=== PATIENT | female | born 1995 | race Caucasian/White ===

== ENCOUNTER 2022-01-01 18:18 | Emergency (ER) | payer BC, SELFPAY ==
[2022-01-01 18:49] VITALS: BP 135/85; PULSE 108; RESP 16; TEMP 37.2; O2SAT 97; BMI 23.3
--- NOTE | 2022-01-01 21:11 | CTR_ITS ---
PROCEDURE INFORMATION: Exam: CT Head Without Contrast Exam date and time: 01/01/2022 10:19 PM Age: 26 years old Clinical indication: Pain; Headache not specified; Patient HX: C/O frontal LUU w n/v and photophobia; Additional info: Migraine-first episode TECHNIQUE: Imaging protocol: Computed tomography of the head without contrast. Radiation optimization: All CT scans at this facility use at least one of these dose optimization techniques: automated exposure control; mA and/or kV adjustment per patient size (includes targeted exams where dose is matched to clinical indication); or iterative reconstruction. COMPARISON: No relevant prior studies available. RADIATION DOSE METRICS: Total DLP (mGy-cm): 740.04 FINDINGS: Brain: Normal. No hemorrhage. Unremarkable white matter. No mass effect. Cerebral ventricles: No ventriculomegaly. Paranasal sinuses: Visualized sinuses are unremarkable. No fluid levels. Mastoid air cells: Visualized mastoid air cells are well aerated. Soft tissues: Unremarkable. Bones/joints: Unremarkable. No acute fracture. CT/CT head wo con* [id number] IMPRESSION: No acute intracranial abnormality.
--- NOTE | 2022-01-01 21:13 | ED_ITS ---
HPI - Headache General: Chief Complaint: Nausea/Vomiting/Diarrhea Stated Complaint: Migrane Time Seen by Provider: 01/01/22 20:57 History of Present Illness: Patient is a 26-year-old female who comes to the ED with a migraine. Symptoms started yesterday. She has had headaches in the past but says she has never had a headache like this before. Headache rated a 7 out of 10. She is having some nausea with emesis. She states that lights and loud noises make her headache worse. Headache is located in the frontal region of head bilaterally. Denies any neurological symptoms such as vision changes, numbness or tingling to face or any weakness to 1 side of her body. Patient als o says she has been having some on and off nausea and some generalized abdominal pain that has been going on and off for the past 2 months. She seen her primary care physician at [facility] about her abdominal pain and they performed an ultrasound of her abdomen 2 weeks ago she has not gotten the report yet. Denies any fevers, diarrhea, constipation, dysuria, hematuria, vaginal bleeding or vag inal discharge. Patient says her last menstrual period was the end of November. Associated symptoms: Reports nausea and vomiting; Deny chest pain, fever(s) or rash Review of Systems Const: Denies: fever(s), chills or fatigue Eyes: Reports: photophobia; Denies: change in vision or eye discomfort ENMT: Denies: throat pain, odynophagia, nasal discharge or nasal congestion Card: Denies: chest pain, palpitations, edema, swelling of feet/ankles, dyspnea on exertion or orthopnea Resp: Denies: dyspnea, productive cough or non-productive cough GI: Reports: nausea and vomiting; Denies: abdominal pain, diarrhea, constipation or hematochezia : Denies: flank pain, dysuria or hematuria Musc: Denies: neck pain, back pain or extremity swelling Skin/Breast: Denies: rash or new lesions Neuro: Reports: headache(s); Denies: numbness in extremities or weakness in extremities PFS ED PFSH: Medical History No pertinent family history No pertinent past medical history Female Reproductive History: Date of last menstrual period: 12/14/21 Physical Exam Const: COMMON NORMALS: no acute distress, patient oriented x3, healthy appearing and alert GENERAL APPEARANCE: cooperative and comfortable HENMT: COMMON NORMALS: normocephalic HEAD & SCALP: normocephalic MOUTH: Normal oral and palatal mucosa present THROAT: posterior oropharynx normal and uvula midline Eye: COMMON NORMALS: Equal, round and reactive pupils present, EOMs intact bilaterally and conjunctivae normal CONJUNCTIVA: Yes conjunctivae normal PUPIL: Yes Equal, round and reactive pupils present Neck/C-Spine: COMMON NORMALS: supple GENERAL: Yes normal visual inspection Resp: COMMON NORMALS: normal respiratory effort, No retractions, No use of accessory muscles and clear to auscultation bilaterally AUSCULTATION: clear to auscultation bilaterally Cardio: COMMON NORMALS: regular rate, regular rhythm, S1 normal heart sound present, S2 normal heart sound present, No gallops present (Cardio), No clicks present (Cardio), No murmurs present (Cardio) and Peripheral pulses 2+ throughout RATE: regular rate RHYTHM: regular rhythm HEART SOUNDS: S1 normal heart sound present and S2 normal heart sound present PERIPHERAL PULSES: Peripheral pulses 2+ throughout GI: COMMON NORMALS: Normal to inspection, nondistended, normoactive bowel sounds present, Soft to palpation, non-tender and no masses PALPATION: Yes Soft to palpation : COMMON NORMALS: Yes no CVA tenderness BLADDER/KIDNEY EXAM: Yes no CVA tenderness Back/Pelvis: COMMON NORMALS: no CVA tenderness Extremity: COMMON NORMALS: normal to inspection Neuro: COMMON NORMALS: patient oriented x3, CN's II-XII intact bilaterally, moves all extremities, no focal motor deficits and no sensory deficits noted SENSORIUM/ORIENTATION: Yes alert SENSORY EXAM: Yes extremities (intact) MOTOR EXAM: 5/5 motor strength present throughout Skin: GENERAL SKIN EXAM: dry skin Course Reevaluation(s): Reevaluation #1: After patient received migraine meds her headache improved. She now rates her migraine a 4 out of 10 and feels that it is manageable and she is ready to be discharged home. Time: 23:05 Vital Signs: Vital signs: Vital Signs Temperature 99 F 01/01/22 18:49 Pulse Rate 78 01/01/22 23:49 Respiratory Rate 18 01/01/22 23:49 Blood Pressure 93/54 01/01/22 23:49 Pulse Oximetry 98 01/01/22 23:49 [facility] - Headache Medical Decision Making Patient is a 26-year-old female comes to the ED with migraine symptoms. Patient has never had a headache like this before. She has had nausea today with multiple episodes of emesis. Patient appears nontoxic and in no acute distress or pain. Vitals are stable. Neuro exam is normal. Rest of exam is benign. White blood cell count 16.4 but the rest of CBC, CMP UA and lipase were unr emarkable. hCG negative. CT of head showed no acute findings. Patient was given migraine med cocktail and her headache improved. She was stable and ready for discharge home. Patient diagnosed with a migraine. She was told to follow- up with her PCP in the next week for reevaluation. Return to ED precautions given. Patient understood and agreed with plan. Lab Data I reviewed the patient's lab results. : 01/01/22 21:42 01/01/22 21:[address] 01/01/22 21:11 IMPRESSION: No acute intracranial abnormality. Laboratory Results WBC 16.4 10^3/uL (4.0-10.0) H 01/01/22 21:42 RBC 4.46 10^6/uL (4.1-5.3) 01/01/22 21:42 Hgb 13.9 g/dL (11.5-15.3) 01/01/22 21:42 Hct 42.3 % (37.0-47.0) 01/01/22 21:42 MCV 94.8 fl (81-99) 01/01/22 21:42 MCH 31.2 pg (28.0-34.0) 01/01/22 21:42 MCHC 32.9 g/dL (30.0-36.0) 01/01/22 21:42 RDW 12.4 % (12.1-15.1) 01/01/22:42 Plt Count 467 10^3/cmm (130-400) H 01/01/22 21:42 MPV 9.9 fL (7.4-10.4) 01/01/22 21:42 Neut % (Auto) 62.9 % 01/01/22 21:42 Lymph % (Auto) 28.6 % 01/01/22:42 Thomas % (Auto) 7.0 % 01/01/22 21:42 Eos % (Auto) 0.8 % 01/01/22 21:42 Baso % (Auto) 0.4 % 01/01/22 21:42 Neut # (Auto) 10.33 10^3/uL (1.8-7.7) H 01/01/22 21:42 Lymph # (Auto) 4.7 10^3/uL (0.8-4.8) 01/01/22 21:42 Thomas # (Auto) 1.2 10^3/uL (0.2-0.9) H 01/01/22 21:42 Eos # (Auto) 0.1 10^3/uL (0.0-0.8) 01/01/22 21:42 Baso # (Auto) 0.1 10^3/uL (0.0-0.1) 01/01/22 21:42 Nucleated RBC % (auto) 0 % 01/01/22 21: Nucleated RBCs # 0.0 /100WBC 01/01/22 21:42 Sodium 139 mmol/L (136-145) 01/01/22 21:42 Potassium 4.2 mmol/L (3.5-5.1) 01/01/22 21:42 Chloride 105 mmol/L (98-107) 01/01/22 21:42 Carbon Dioxide 22 mmol/L (22-29) 01/01/22 21:42 Anion Gap 16.2 (5-19) 01/01/22 21:42 BUN 18 mg/dL (6-20) 01/01/22 21:42 Creatinine 0.7 mg/dL (0.5-0.9) 01/01/22 21:42 GFR Calculation 102.8 mL/min (90-130) 01/01/22 21:42 Glucose 86 mg/dL (65-115) 01/01/22 21:42 Calculated Osmolality 289 mOsm/kg (285-295) 01/01/22 21:42 Calcium 9.7 mg/dL (8.5-10.5) 01/01/22 21:42 Total Bilirubin 0.2 mg/dL (0.15-1.2) 01/01/22 21:42 AST 20 U/L (0-32) 01/01/22 21:42 ALT 16 U/L (0-33) 01/01/22 21:42 Alkaline Phosphatase 121 IU/L (35-105) H 01/01/22 21:42 Total Protein 7.5 g/dL (6.6-8.7) 01/01/22 21:42 Albumin 5.1 g/dL (3.5-5.2) 01/01/22 21:42 Globulin 2.4 g/dL (1.3-4.6) 01/01/22 21:42 Lipase 29 U/L (13-60) 01/01/22 21:42 HCG, Qual Negative (Negative) 01/01/22 21:42 Urine Color Yellow (Yellow) 01/01/22 21:50 Urine Appearance Turbid (CLEAR) 01/01/22 21:50 Urine pH 6.5 (5-7) 01/01/22 21:50 Ur Specific [place] 1.020 (1.005-1.030) 01/01/22 21:50 Urine Protein Neg (Negative) 01/01/22 21:50 Urine Glucose (UA) Norm (Normal) 01/01/22 21:50 Urine Ketones Negative (Negative) 01/01/22 21:50 Urine Blood Neg (Negative) 01/01/22 21:50 Urine Nitrate Negative (Negative) 01/01/22 21:50 Urine Bilirubin Neg (Negative) 01/01/22 21:50 Urine Urobilinogen 1 mg/dL (Negative) H 01/01/22 21:50 Ur Leukocyte Esterase Negative (Negative) 01/01/22 21:50 Urine RBC 0-4 /hpf (0-2) H 01/01/22 21:50 Urine WBC 0-4 /hpf (0-5) H 01/01/22 21:50 Ur Squamous Epith Cells 25-40 /hpf (0-5) H 01/01/22 21:50 Amorphous Sediment Not Reportable 01/01/22 21:50 Urine Bacteria 2+ /hpf (NONE) H 01/01/22 21:50 Urine Mucus 2+ /hpf 01/01/22 21:50 Discharge Plan Discharge Patient Disposition: Home Clinical Impression: Migraine Qualifiers: Migraine type: without aura Status migrainosus presence: without status migrainosus Intractability: not intractable Qualified Code(s): G43.009 - Migraine without aura, not intractable, without status migrainosus Condition: Stable Prescriptions: New ondansetron 4 mg tablet,disintegrating 4 mg PO Q8H PRN (Reason: nausea and vomiting) Qty: 15 0RF Discharge Orders: Discharge ED (Routine); Ordered 01/01/22 Ordered By: Ike Bianchi Discharge Diet: Regular Discharge Activity: Resume usual activity Patient Instructions: Headache - Migraine (Adult) Activity Restrictions/Additional Instructions: Follow-up with medical provider as directed in the next 7 to 10 days reevaluation. Take medications as prescribed. Return to the ER or your medical provider if condition worsens. Please read and understand discharge instructions. Thank you for choosing [facility] for your healthcare needs today. Please realize this is an emergency room and that we are providing you with a medical screening exam and this may not be complete and all inclusive of all the testing and or work up that you may need to determine your ailment or severity of your illness. It is very important that you follow up as instructed or that you return to the Emergency Department should you have concerns or if your cond ition changes or worsens in any way. Coding Level of Care Code ED [employer] [facility] Exam Comprehensive
[2022-01-01 21:48] LABS: Basophils # 0.1 10^3/uL (0.0-0.1); Basophils % 0.4 %; Eosinophils # 0.1 10^3/uL (0.0-0.8); Eosinophils % 0.8 %; Hematocrit 42.3 % (37.0-47.0); Hemoglobin 13.9 g/dL (11.5-15.3); Lymphocytes # 4.7 10^3/uL (0.8-4.8); Lymphocytes % 28.6 %; Mean Corpuscular HGB Conc 32.9 g/dL (30.0-36.0); Mean Corpuscular Hemoglobin 31.2 pg (28.0-34.0); Mean Corpuscular Volume 94.8 fl (81-99); Mean Platelet Volume 9.9 fL (7.4-10.4); Monocytes # 1.2 10^3/uL (0.2-0.9); Neutrophils # 10.33 10^3/uL (1.8-7.7); Neutrophils % 62.9 %; Nucleated Red Blood Cells % 0 %; Platelet Count 467 10^3/cmm (130-400); Red Blood Count 4.46 10^6/uL (4.1-5.3); Red Cell Distribution Width 12.4 % (12.1-15.1); White Blood Count 16.4 10^3/uL (4.0-10.0)
[2022-01-01] MEDS: diphenhydrAMINE 50 mg/mL SDV 1mL 25 MG IVP (21:50)
[2022-01-01] MEDS: ketorolac 30 mg/mL INJ IVP (21:50)
[2022-01-01] MEDS: dexamethasone 10 mg/mL INJ IVP (21:50)
[2022-01-01] MEDS: metoclopramide 5 mg/mL SDV 2 mL 10 MG IVP (21:51)
[2022-01-01] MEDS: sodium chloride 0.9% 500 ML 999 ML IV (21:51)
[2022-01-01 22:07] LABS: Add Urine Microscopic? YES; Bilirubin Urine Neg (Negative); Blood Urine Neg (Negative); Glucose Urine UA Norm (Normal); Ketones Urine Negative (Negative); Leukocyte Esterase Urine Negative (Negative); Nitrate Urine Negative (Negative); Protein Urine Neg (Negative); Urine Appearance Turbid (CLEAR); Urine Color Yellow (Yellow); Urobilinogen Urine 1 mg/dL (Negative); pH Urine 6.5 (5-7)
[2022-01-01 22:08] LABS: Add Urine Culture? No; Bacteria Urine 2+ /hpf; Mucus Urine 2+ /hpf; RBC Urine 0-4 /hpf (0-2); Squamous Epithelial Cell Urine 25-40 /hpf (0-5); WBC Urine 0-4 /hpf (0-5)
[2022-01-01 22:15] LABS: HCG, Serum Qual Negative (Negative)
[2022-01-01 22:31] LABS: Alanine Aminotransferase 16 U/L (0-33); Albumin Level 5.1 g/dL (3.5-5.2); Alkaline Phosphatase 121 IU/L (35-105); Anion Gap 16.2 (5-19); Aspartate Amino Transferase 20 U/L (0-32); Blood Urea Nitrogen 18 mg/dL (6-20); Calcium 9.7 mg/dL (8.5-10.5); Carbon Dioxide 22 mmol/L (22-29); Chloride 105 mmol/L (98-107); Globulin 2.4 g/dL (1.3-4.6); Glomerular Filtration Rate 102.8 mL/min (90-130); Glucose 86 mg/dL (65-115); Lipase 29 U/L (13-60); Osmolality Calculated 289 mOsm/kg (285-295); Potassium 4.2 mmol/L (3.5-5.1); Sodium 139 mmol/L (136-145); Total Bilirubin 0.2 mg/dL (0.15-1.2); Total Protein 7.5 g/dL (6.6-8.7)
[2022-01-01 23:49] VITALS: BP 93/54; PULSE 78; RESP 18; O2SAT 98
== END 2022-01-01 23:50 | disposition home or self-care (01) ==
PROVIDERS: Emergency Provider Physician Assistant
DX: G43.009 Migraine without aura, not intractable, without status migrainosus (principal)
CPT/HCPCS: 70450; 80053; 81001; 83690; 84703; 85025; 96374; 96375; 99284; J1100; J1200; J1885; J2765; J7040

== ENCOUNTER → 2022-05-13 13:17 | Outpatient (BNVA) | payer BC, SELFPAY | PROVIDERS: Visit Provider Registered Nurse Neonatal Intensive Care | DX: N39.0 Urinary tract infection, site not specified (principal) | CPT/HCPCS: 81000 ==

== ENCOUNTER 2022-05-16 16:02 | Emergency (ER) | payer BC, SELFPAY ==
[2022-05-16 16:25] VITALS: BP 111/73; PULSE 74; RESP 17; TEMP 36.6; O2SAT 100; BMI 23.3
--- NOTE | 2022-05-16 18:14 | CTR_ITS ---
PROCEDURE INFORMATION: Exam: CT Abdomen And Pelvis Without Contrast Exam date and time: 05/16/2022 7:23 PM Age: 26 years old Clinical indication: Pain; Other: Bilateral flank; Additional info: Flank pain, eval for kidney stone TECHNIQUE: Imaging protocol: Computed tomography of the abdomen and pelvis without contrast. Axial, coronal and sagittal reformatted images were created and reviewed. Radiation optimization: All CT scans at this facility use at least one of these dose optimization techniques: automated exposure control; mA and/or kV adjustment per patient size (includes targeted exams where dose is matched to clinical indication); or iterative reconstruction. COMPARISON: US gall bladder [id number] 12/20/2021 3:26 PM RADIATION DOSE METRICS: Total DLP (mGy-cm): 446.06 FINDINGS: Lungs: Linear stranding and groundglass at the lung bases, likely due to atelectasis and/or scarring. Liver: Unremarkable. Gallbladder and bile ducts: No radiodense gallstones. No biliary ductal dilatation. Pancreas: Unremarkable. Spleen: Unremarkable. Adrenal glands: Normal. No mass. Kidneys and ureters: No mass. No radiodense calculi. No hydronephrosis. Stomach and bowel: Moderate amount of retained stool in the colon. No obstruction. No bowel wall thickening. No pneumatosis. Appendix: Normal. Intraperitoneal space: Trace nonspecific free pelvic fluid, likely physiologic. No organized fluid collection. No free air. Vasculature: Unremarkable. No aneurysm. Lymph nodes: Small mesenteric lymph nodes, nonspecific in appearance. No pathologically enlarged lymph nodes. Urinary bladder: Unremarkable as visualized. Reproductive: 3.1 x 2.9 cm left adnexal cystic lesion. Bones/joints: No acute osseous abnormality. Soft tissues: Unremarkable. CT/CT abdomen pelvis wo con [id number] IMPRESSION: 1. 3.1 x 2.9 cm left adnexal cystic lesion. If clinically indicated, pelvic ultrasound may be obtained for further evaluation. 2. Additional findings, as above.
[2022-05-16 18:36] LABS: Basophils % 0.4 %; Eosinophils # 0.1 10^3/uL (0.0-0.8); Eosinophils % 0.6 %; Hematocrit 42.7 % (37.0-47.0); Hemoglobin 13.7 g/dL (11.5-15.3); Lymphocytes # 2.5 10^3/uL (0.8-4.8); Lymphocytes % 27.1 %; Mean Corpuscular HGB Conc 32.1 g/dL (30.0-36.0); Mean Corpuscular Volume 96.6 fl (81-99); Mean Platelet Volume 9.8 fL (7.4-10.4); Monocytes # 0.7 10^3/uL (0.2-0.9); Monocytes % 7.2 %; Neutrophils # 5.99 10^3/uL (1.8-7.7); Neutrophils % 64.5 %; Nucleated Red Blood Cells % 0 %; Platelet Count 394 10^3/cmm (130-400); Red Blood Count 4.42 10^6/uL (4.1-5.3); Red Cell Distribution Width 12.1 % (12.1-15.1); White Blood Count 9.3 10^3/uL (4.0-10.0)
[2022-05-16 18:36] LABS: HCG Qualitative Urine. Negative (Negative)
[2022-05-16] MEDS: ketorolac 30 mg/mL INJ 15 MG IVP (18:38)
[2022-05-16 18:40] VITALS: BP 102/58; PULSE 68; RESP 18; TEMP 36.6; O2SAT 100
[2022-05-16 18:46] LABS: Add Urine Culture? No; Add Urine Microscopic? YES; Bilirubin Urine Neg (Negative); Blood Urine Neg (Negative); Glucose Urine UA Norm (Normal); Ketones Urine 1+ (Negative); Leukocyte Esterase Urine Trace (Negative); Nitrate Urine Negative (Negative); Protein Urine Neg (Negative); Urine Appearance Clear (CLEAR); Urine Color Yellow (Yellow); Urobilinogen Urine Norm (Negative); WBC Urine 0-4 /hpf (0-5); pH Urine 5 (5-7)
[2022-05-16 18:51] LABS: HCG, Serum Qual Negative (Negative)
[2022-05-16 19:10] LABS: Alanine Aminotransferase 13 U/L (0-33); Albumin Level 5.3 g/dL (3.5-5.2); Alkaline Phosphatase 93 U/L (35-105); Anion Gap 16.7 (5-19); Aspartate Amino Transferase 21 U/L (0-32); Blood Urea Nitrogen 9 mg/dL (6-20); Calcium 9.9 mg/dL (8.5-10.5); Carbon Dioxide 24 mmol/L (22-29); Chloride 100 mmol/L (98-107); Glomerular Filtration Rate 122.8 mL/min (90-130); Glucose 80 mg/dL (65-115); Osmolality Calculated 282 mOsm/kg (285-295); Potassium 3.7 mmol/L (3.5-5.1); Sodium 137 mmol/L (136-145); Total Bilirubin 0.5 mg/dL (0.15-1.2); Total Protein 8.3 g/dL (6.6-8.7)
--- NOTE | 2022-05-16 19:50 | USR_ITS ---
PROCEDURE INFORMATION: Exam: US Duplex Artery or Vein of the Abdominal and/or Reproductive Organs, Limited Ovaries Exam date and time: 05/16/2022 8:11 PM Age: 26 years old Clinical indication: Abdominal pain; Right lower quadrant; Patient HX: RT adnexal pain x 1week. Concurrent UTI. Patient did not subside following treatment for UTI. Was advised to present to er [facility]. CT was done = cystic adnexal lesion; Additional info: Cystic adnexal lesion on CT. TECHNIQUE: Imaging protocol: Real-time duplex ultrasound scan of the arterial or venous flow with joseph scale, color Doppler flow and spectral waveform analysis with image documentation. Limited duplex exam focused on the ovaries. Duplex images required to evaluate for torsion and other vascular conditions. COMPARISON: CT abdomen pelvis con [id number] 05/16/2022 7:23 PM FINDINGS: Right ovary/adnexa: Normal duplex of the ovary. Normal Doppler waveforms and color flow. No evidence of ovarian torsion. Left ovary/adnexa: Normal duplex of the ovary. Normal Doppler waveforms and color flow. No evidence of ovarian torsion. PROCEDURE INFORMATION: Exam: US Pelvis Complete, Transabdominal and US Pelvis, Transvaginal Exam date and time: 05/16/2022 8:11 PM Age: 26 years old Clinical indication: Abdominal pain; Right lower quadrant; Patient HX: RT adnexal pain x 1week. Concurrent UTI. Patient did not subside following treatment for UTI. Was advised to present to er [facility]. CT was done = cystic adnexal lesion; Additional info: Cystic adnexal lesion on CT. TECHNIQUE: Imaging protocol: Real-time complete transabdominal and transvaginal pelvic ultrasound with image documentation. Transvaginal imaging was used for better evaluation of the endometrium, adnexa, and/or cervix. COMPARISON: CT abdomen pelvis wo con [id number] 05/16/2022 7:23 PM FINDINGS: Uterus: 7.1 x 4.3 x 5.7 cm. Normal endometrial thickness, measuring approximately 11 mm. Right ovary/adnexa: 3.2 x 2.3 x 3.5 cm. No mass. Normal ovarian blood flow. Left ovary/adnexa: 3.4 x 2.8 x 3.7 cm. 2.9 x 3.1 x 2.4 cm cystic lesion with internal septations and debris, likely a hemorrhagic cyst. No solid mass. Normal ovarian blood flow. Intraperitoneal space: Trace free pelvic fluid, likely physiologic. Urinary bladder: Normal. US/US pelvic limited [id number] IMPRESSION: Normal duplex of the ovaries. No evidence of ovarian torsion. IMPRESSION: 2.9 x 3.1 x 2.4 cm left ovarian cystic lesion with internal septations and debris, likely a hemorrhagic cyst.
[2022-05-16 20:00] VITALS: BP 108/60; PULSE 72; RESP 18; TEMP 36.6; O2SAT 100
--- NOTE | 2022-05-16 21:55 | ED_ITS ---
HPI - Female Genitourinary General: Chief complaint: Urogenital-Female Stated complaint: abd pain Time Seen by Provider: 05/16/22 18:13 History of Present Illness: 26-year-old female presenting today with right flank pain. Patient notes that she has had moderate right flank pain. This pain has been present for several days. Was initially started on antibiotics for suspected UTI. She notes that despite these antibiotics her flank pain has not improved. She denies fevers or chills. She denies nausea or vomiting. She notes the pain is constant and not improving. She denies continued dysuria or polyuria. She denies vaginal bleeding or vaginal discharge. Date of Last Menstrual Period: 12/14/21 Review of Systems General: Reports: 10 or more systems reviewed and unremarkable except in HPI and below PFSH ED PFSH: Medical History (Updated 05/16/22 @ 22:07 by Charles Qureshi DO) No pertinent family history No pertinent past medical history Psychiatric care Social History (Updated 05/10/22 @ 08:59 by Man Bustamante LPN) Smoking and tobacco status: never smoked Second hand smoke exposure: No Smoking risk assessment/counseling performed?: No Alcohol intake: former Year of sobriety/quit date alcohol: 2020 Desire information about alcohol rehabilitation?: No Counseling given: No Desire information about substance/drug rehabilitation?: No Counseling given: No Female Reproductive History: Date of last menstrual period: 12/14/21 Physical Exam Const: COMMON NORMALS: no acute distress, patient oriented x3 and alert GENERAL APPEARANCE: cooperative ORIENTATION/CONSCIOUSNESS: Yes awake, Yes oriented to person, Yes oriented to place and Yes oriented to time HENMT: COMMON NORMALS: normocephalic, atraumatic, external ears normal, Normal external nose present and moist oral mucous membranes HEAD & SCALP: normal to inspection, normocephalic and atraumatic NOSE: Normal external nose present GENERAL EAR: hearing grossly impaired EXTERNAL EAR: Yes external ears normal Eye: COMMON NORMALS: Equal, round and reactive pupils present, EOMs intact bilaterally, conjunctivae normal and no scleral icterus GENERAL EYE: appearance normal, both eyes and all related structures EYELID: eyelids normal CONJUNCTIVA: Yes conjunctivae normal SCLERA: sclerae normal PUPIL: Yes Equal, round and reactive pupils present Neck/C-Spine: COMMON NORMALS: full ROM, supple and no JVD GENERAL: Yes normal visual inspection Lymph: LYMPHATIC: no lymphadenopathy noted and no lymphedema noted Chest: COMMONS NORMALS: normal inspection of the chest Resp: COMMON NORMALS: normal respiratory effort, No retractions and No use of accessory muscles Cardio: COMMON NORMALS: no JVD, regular rate and regular rhythm RATE: regular rate RHYTHM: regular rhythm GI: COMMON NORMALS: Normal to inspection, nondistended, normoactive bowel sounds present : COMMON NORMALS: Yes no CVA tenderness BLADDER/KIDNEY EXAM: Yes no CVA tenderness Back/Pelvis: COMMON NORMALS: no CVA tenderness and thoracic and lumbar spine normal to inspection Extremity: COMMON NORMALS: normal to inspection, full ROM and capillary refill normal GENERAL: Yes normal exam except as noted Neuro: COMMON NORMALS: patient oriented x3, CN's II-XII intact bilaterally, moves all extremities, no focal motor deficits, no sensory deficits noted and gait normal SENSORIUM/ORIENTATION: Yes alert, Yes oriented to person, Yes oriented to place and Yes oriented to time Psych: COMMON NORMALS: mental status grossly normal, Normal thought process present, cooperative and normal affect THOUGHT PROCESS: Normal thought process present Skin: COMMON NORMALS: no rashes or lesions noted and no wounds GENERAL SKIN EXAM: no rashes or lesions noted Course Vital Signs: Vital signs: Vital Signs Temperature 97.8 F 05/16/22 18:40 Pulse Rate 68 05/16/22 18:40 Respiratory Rate 18 05/16/22 18:40 Blood Pressure 102/58 05/16/22 18:40 Pulse Oximetry 100 05/16/22 18:40 Oxygen Delivery Me thod 05/16/22 18:40 MDM - Female Medical Decision Making 26-year-old female presenting today with right flank pain. Urinalysis is unremarkable. CBC is unremarkable. CMP is unremarkable. CT abdomen pelvis with evidence of cystic left adnexal lesion. Ultrasound ordered for further evaluation. Ultrasound with evidence of a hemorrhagic ovarian cyst. Patient was given return precautions recommended routine outpatient follow-up. Lab Data : 05/16/22 18:28 05/16/22 18:28 Radiology Impressions Abdomen/Pelvis CT 05/16/22 18:14 IMPRESSION: 1. 3.1 x 2.9 cm left adnexal cystic lesion. If clinically indicated, pelvic ultrasound may be obtained for further evaluation. 2. Additional findings, as above. Pelvis Ultrasound 05/16/22 19:50 IMPRESSION: Normal duplex of the ovaries. No evidence of ovarian torsion. IMPRESSION: 2.9 x 3.1 x 2.4 cm left ovarian cystic lesion with internal septations and debris, likely a hemorrhagic cyst. Laboratory Results WBC 9.3 10^3/uL (4.0-10.0) 05/16/22 18: RBC 4.42 10^6/uL (4.1-5.3) 05/16/22 18: Hgb 13.7 g/dL (11.5-15.3) 05/16/22 18: Hct 42.7 % (37.0-47.0) 05/16/22 18: MCV 96.6 fl (81-99) 05/16/22 18: MCH 31.0 pg (28.0-34.0) 05/16/22 18: MCHC 32.1 g/dL (30.0-36.0) 05/16/22 18: RDW 12.1 % (12.1-15.1) 05/16/22 18: Plt Count 394 10^3/cmm (130-400) 05/16/22 18: MPV 9.8 fL (7.4-10.4) 05/16/22 18: Neut % (Auto) 64.5 % 05/16/22 18: Lymph % (Auto) 27.1 % 05/16/22 18: [place] % (Auto) 7.2 % 05/16/22 18: Eos % (Auto) 0.6 % 05/16/22 18: Baso % (Auto) 0.4 % 05/16/22 18: Neut # (Auto) 5.99 10^3/uL (1.8-7.7) 05/16/22 18: Lymph # (Auto) 2.5 10^3/uL (0.8-4.8) 05/16/22 18: [place] # (Auto) 0.7 10^3/uL (0.2-0.9) 05/16/22 18: Eos # (Auto) 0.1 10^3/uL (0.0-0.8) 05/16/22 18:28 Baso # (Auto) 0.0 10^3/uL (0.0-0.1) 05/16/22 18:28 Nucleated RBC % (auto) 0 % 05/16/22 18:28 Nucleated RBCs # 0.0 /100WBC 05/16/22 18:28 Sodium 137 mmol/L (136-145) 05/16/22 18: Potassium 3.7 mmol/L (3.5-5.1) 05/16/22 18: Chloride 100 mmol/L (98-107) 05/16/22 18:28 Carbon Dioxide 24 mmol/L (22-29) 05/16/22 18:28 Anion Gap 16.7 (5-19) 05/16/22 18:28 BUN 9 mg/dL (6-20) 05/16/22 18:28 Creatinine 0.6 mg/dL (0.5-0.9) 05/16/22 18: GFR Calculation 122.8 mL/min (90-130) 05/16/22 18: Glucose 80 mg/dL (65-115) 05/16/22 18:28 Calculated Osmolality 282 mOsm/kg (285-295) L 05/16/22 18: Calcium 9.9 mg/dL (8.5-10.5) 05/16/22 18:28 Total Bilirubin 0.5 mg/dL (0.15-1.2) 05/16/22 18:28 AST 21 U/L (0-32) 05/16/22 18:28 ALT 13 U/L (0-33) 05/16/22 18:28 Alkaline Phosphatase 93 U/L (35-105) 05/16/22 18:28 Total Protein 8.3 g/dL (6.6-8.7) 05/16/22 18:28 Albumin 5.3 g/dL (3.5-5.2) H 05/16/22 18:28 Globulin 3.0 g/dL (1.3-4.6) 05/16/22 18:28 HCG, Qual Negative (Negative) 05/16/22 18:28 Urine Color Yellow (Yellow) 05/16/22 18:14 Urine Appearance Clear (CLEAR) 05/16/22 18:14 Urine pH 5 (5-7) 05/16/22 18:14 Ur Specific [place] 1.020 (1.005-1.030) 05/16/22 18:14 Urine Protein Neg (Negative) 05/16/22 18:14 Urine Glucose (UA) Norm (Normal) 05/16/22 18:14 Urine Ketones 1+ (Negative) H 05/16/22 18:14 Urine Blood Neg (Negative) 05/16/22 18:14 Urine Nitrate Negative (Negative) 05/16/22 18:14 Urine Bilirubin Neg (Negative) 05/16/22 18:14 Urine Urobilinogen Norm mg/dL (Negative) 05/16/22 18:14 Ur Leukocyte Esterase Trace (Negative) H 05/16/22 18:14 Urine RBC None /hpf (0-2) 05/16/22 18:14 Urine WBC 0-4 /hpf (0-5) H 05/16/22 18:14 Ur Squamous Epith Cells 5-10 /hpf (0-5) H 05/16/22 18:14 Amorphous Sediment Not Reportable 05/16/22 18:14 Urine Bacteria None /hpf (NONE) 05/16/22 18:14 Discharge Plan Discharge Patient Disposition: Home Clinical Impression: Ovarian cyst Condition: Stable Prescriptions: New diclofenac sodium 75 mg tablet,delayed release (DR/EC) 75 mg PO BID Qty: 30 0RF methocarbamol 750 mg tablet 750 mg PO Q8H Qty: 30 0RF No Action nitrofurantoin monohyd/m-cryst [Macrobid] 100 mg capsule 100 mg PO BID 5 Days Qty: 10 0RF Rx Instructions: must administer with a meal/food trazodone 50 mg tablet 100 mg PO .HS PRN (Reason: insomnia) Qty: 60 1RF fluoxetine [Prozac] 20 mg capsule 20 mg PO DAILY Qty: 30 1RF Discharge Orders: Discharge ED (Routine); Ordered 05/16/22 Ordered By: Charles Qureshi Discharge Diet: Advance as tolerated Discharge Activity: Resume usual activity Patient Instructions: Ovarian Cyst Coding Level of Care Code ED Fundraising Manager for [employer] Exam Comprehensive
[2022-05-16] MEDS: haloperidol inj 5 mg/mL INJ 1 mL 2 MG IVP (22:16)
[2022-05-16] MEDS: methocarbamol 750 mg Tablet 1500 MG PO (22:16)
[2022-05-16] MEDS: acetaminophen 500 mg Tablet 1000 MG PO (22:17)
[2022-05-16 22:27] VITALS: BP 110/62; PULSE 70; RESP 18; TEMP 36.7; O2SAT 100
== END 2022-05-16 22:25 | disposition home or self-care (01) ==
PROVIDERS: Family Medicine; Physician Assistant; Emergency Provider Emergency Medicine
DX: N83.202 Unspecified ovarian cyst, left side (principal)
CPT/HCPCS: 74176; 76830; 76856; 76857; 80053; 81001; 81025; 84703; 85025; 96374; 96375; 99285; J1630; J1885

== ENCOUNTER 2022-06-11 21:53 | Emergency (ER) | payer BC, SELFPAY ==
--- NOTE | 2022-06-11 21:58 | XRR_ITS ---
PROCEDURE INFORMATION: Exam: XR Chest Exam date and time: 06/11/2022 10:21 PM Age: 26 years old Clinical indication: Shortness of breath; Additional info: SOB TECHNIQUE: Imaging protocol: Radiologic exam of the chest. Views: 1 view. COMPARISON: CT abdomen pelvis con [id number] 05/16/2022 7:23 PM FINDINGS: Lungs: Unremarkable. No consolidation. Pleural spaces: Unremarkable. No pleural effusion. No pneumothorax. Heart/Mediastinum: Unremarkable. No cardiomegaly. Bones/joints: Unremarkable. XR/XR chest 1V portable [id number] IMPRESSION: No acute findings.
[2022-06-11 22:08] VITALS: BP 133/77; PULSE 75; RESP 16; TEMP 36.9; O2SAT 97
--- NOTE | 2022-06-11 22:15 | ECG_ITS ---
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 Measurements Intervals [place] Rate: 81 P: 52 LA: 180 QRS: 37 QRSD: 72 T: 40 QT: 380 QTc: 443 Interpretive Statements SINUS RHYTHM WITH SINUS ARRHYTHMIA POSSIBLE ANTERIOR MYOCARDIAL INFARCTION , OF INDETERMINATE AGE [30 ms Q WAVE IN V3/V4, OR R < 0.2 mV IN V4] No previous ECG available for comparison Electronically Signed On 06-12-2022 7:36:07 CDT by Jonnie Hunter M.D. [id number]
[2022-06-11 22:48] VITALS: O2SAT 98
[2022-06-11] MEDS: metoclopramide 5 mg/mL SDV 2 mL 10 MG IVP (22:48)
[2022-06-11] MEDS: dexamethasone 10 mg/mL INJ 6 MG IVP (22:48)
[2022-06-11] MEDS: ketorolac 30 mg/mL INJ 15 MG IVP (22:48)
--- NOTE | 2022-06-11 22:48 | PC.NURSE ---
assumed care of patient at this time.
[2022-06-11] MEDS: sodium chloride 0.9% 1,000 ML 999 ML IV (22:49)
--- NOTE | 2022-06-11 22:50 | ED_ITS ---
HPI - COVID General: Chief Complaint: COVID symptoms Stated Complaint: body aches, migraine,sob Time Seen by Provider: 06/11/22 22:27 History of Present Illness: 26-year-old female comes in today for complaints of headache, body aches and shortness of breath. Patient has had COVID-19 for the last 7 days. Patient states he started getting sick on the 10th. Patient continues to have symptoms. Patient appears nontoxic. Patient does appear mildly unwell. COVID 19 common symptoms: positive dyspnea; negative fever(s), nausea, vomiting or diarrhea COVID 19 other sytmptoms: positive chest pain COVID Results: No Data to Display Review of Systems Const: Denies: fever(s) Card: Reports: chest pain Resp: Reports: dyspnea GI: Denies: nausea, vomiting or diarrhea : Denies: difficulty voiding Musc: Denies: back pain Skin/Breast: Denies: rash PFSH ED PFSH: Medical History No pertinent family history No pertinent past medical history Psychiatric care Social History Smoking and tobacco status: never smoked Second hand smoke exposure: No Smoking risk assessment/counseling performed?: No Alcohol intake: former Year of sobriety/quit date alcohol: 2020 Desire information about alcohol rehabilitation?: No Counseling given: No Desire information about substance/drug rehabilitation?: No Counseling given: No Female Reproductive History: Date of last menstrual period: 12/14/21 Physical Exam Const: COMMON NORMALS: alert HENMT: COMMON NORMALS: normocephalic HEAD & SCALP: normocephalic THROAT: posterior oropharynx abnormal cobblestoning Resp: COMMON NORMALS: normal respiratory effort AUSCULTATION: diminished lung sounds (Bilateral bases) Cardio: COMMON NORMALS: regular rate, regular rhythm, S1 normal heart sound present and S2 normal heart sound present RATE: regular rate RHYTHM: regular rhythm HEART SOUNDS: S1 normal heart sound present and S2 normal heart sound present GI: COMMON NORMALS: Soft to palpation and non-tender PALPATION: Yes Soft to palpation Neuro: SENSORIUM/ORIENTATION: Yes alert Course Vital Signs: Vital signs: Vital Signs Temperature 98.5 F 06/11/22 22:08 Pulse Rate 50 L 06/11/22 23:35 Respiratory Rate 17 06/11/22 23:35 Blood Pressure 98/60 06/11/22 23:35 Pulse Oximetry 100 06/11/22 23:35 Oxygen Delivery Me thod 06/11/22 23:35 [facility] - COVID Medical Decision Making 26-year-old female comes in today for complaints of malaise, body aches, and headache. Patient is on day 10 of COVID-19 infection. On exam patient has some decreased air sounds in the bases of bilateral lungs. Skin is warm and dry. Abdomen soft nontender. Posterior pharynx has some cobblestoning. Vital signs are normal. Differential diagnosis includes pneumonia, dehydration, malinge ring, post viral syndrome. Chest x-ray was unremarkable. Patient was treated for her headache with Reglan, ketorolac, and dexamethasone along with 1 L of IV fluid. EKG showed no significant abnormalities. Patient had improvement of symptoms and felt much better after hydration and medication. Laboratory values noted no abnormalities. Recommend follow-up with primary care and continue treatment with fluids and acetaminophen and ibuprofen for pain. Patient stated understanding and agreed to plan. Lab Data : 06/11/22 22:48 Radiology Impressions Chest X-Ray 06/11/22 21:58 IMPRESSION: No acute findings. Laboratory Results Sodium 140 mmol/L (136-145) 06/11/22 22:48 Potassium 3.8 mmol/L (3.5-5.1) 06/11/22 22:48 Chloride 103 mmol/L (98-107) 06/11/22 22:48 Carbon Dioxide 27 mmol/L (22-29) 06/11/22 22:48 Anion Gap 13.8 (5-19) 06/11/22 22:48 BUN 10 mg/dL (6-20) 06/11/22 22:48 Creatinine 0.7 mg/dL (0.5-0.9) 06/11/22 22:48 GFR Calculation 102.8 mL/min (90-130) 06/11/22 22:48 Glucose 94 mg/dL (65-115) 06/11/22 22:48 Calculated Osmolality 289 mOsm/kg (285-295) 06/11/22 22:48 Calcium 9.6 mg/dL (8.5-10.5) 06/11/22 22:48 Total Bilirubin 0.2 mg/dL (0.15-1.2) 06/11/22 22:48 AST 20 U/L (0-32) 06/11/22 22:48 ALT 15 U/L (0-33) 06/11/22 22:48 Alkaline Phosphatase 93 U/L (35-105) 06/11/22 22:48 Total Protein 7.0 g/dL (6.6-8.7) 06/11/22 22:48 Albumin 4.4 g/dL (3.5-5.2) 06/11/22 22:48 Globulin 2.6 g/dL (1.3-4.6) 06/11/22 22:48 HCG, Qual Negative (Negative) 06/11/22 23:34 No Data to Display Discharge Plan Discharge Patient Disposition: Home Clinical Impression: COVID-19 Condition: Stable Prescriptions: No Action trazodone 50 mg tablet 100 mg PO .HS PRN (Reason: insomnia) Qty: 60 1RF fluoxetine [Prozac] 20 mg capsule 20 mg PO DAILY Qty: 30 1RF ibuprofen 600 mg tablet 600 mg PO Q6H PRN (Reason: pain) Qty: 30 0RF ondansetron 8 mg tablet,disintegrating 8 mg PO Q8H PRN (Reason: nausea and vomiting) 5 Days Qty: 15 0RF diclofenac sodium 75 mg tablet,delayed release (DR/EC) 75 mg PO BID Qty: 30 0RF methocarbamol 750 mg tablet 750 mg PO Q8H Qty: 30 0RF Discharge Orders: Discharge ED (Routine); Ordered 06/11/22 Ordered By: Colten Almonte Discharge Diet: Advance as tolerated Discharge Activity: Increase activity as tolerated Activity Restrictions/Additional Instructions: Home and rest. Drink plenty of fluids. Use acetaminophen and ibuprofen for pain and discomfort. Follow-up with primary care for further instruction. Return to ER for new concerns or worsening symptoms. Stand Alone Forms: Work/School Release Coding Level of Care Code ED Hot Packer for Curtis Fwd Exam Detailed
[2022-06-11 23:20] VITALS: BP 90/50; RESP 19; O2SAT 97
[2022-06-11 23:35] VITALS: BP 98/60; PULSE 50; RESP 17; O2SAT 100
[2022-06-11 23:49] LABS: HCG, Serum Qual Negative (Negative)
[2022-06-11 23:49] LABS: Alanine Aminotransferase 15 U/L (0-33); Albumin Level 4.4 g/dL (3.5-5.2); Alkaline Phosphatase 93 U/L (35-105); Anion Gap 13.8 (5-19); Aspartate Amino Transferase 20 U/L (0-32); Blood Urea Nitrogen 10 mg/dL (6-20); Calcium 9.6 mg/dL (8.5-10.5); Carbon Dioxide 27 mmol/L (22-29); Chloride 103 mmol/L (98-107); Globulin 2.6 g/dL (1.3-4.6); Glomerular Filtration Rate 102.8 mL/min (90-130); Glucose 94 mg/dL (65-115); Osmolality Calculated 289 mOsm/kg (285-295); Potassium 3.8 mmol/L (3.5-5.1); Sodium 140 mmol/L (136-145); Total Bilirubin 0.2 mg/dL (0.15-1.2)
[2022-06-12 00:29] VITALS: RESP 17; O2SAT 100
== END 2022-06-12 00:30 | disposition home or self-care (01) ==
PROVIDERS: Emergency Provider Nurse Practitioner Family
DX: U07.1 COVID-19 (principal)
CPT/HCPCS: 71045; 80053; 84703; 93005; 96361; 96374; 96375; 99285; J1100; J1885; J2765; J7030